=== PATIENT | female | born 1975 | race Two or more races ===

== ENCOUNTER 2020-06-12 22:45 | Emergency (ER) | payer MEDICAID ==
[~2020-06-12] VITALS: Ht 162.6 cm; Wt 59.0 kg
[2020-06-12 22:49] VITALS: BP 112/63
== END 2020-06-13 01:16 | disposition home or self-care (01) ==
LOC: ER 22:45
DX: R55 Syncope and collapse (principal); Z98.890 Other specified postprocedural states
CPT/HCPCS: 93005; 99283